=== PATIENT | female | born 1975 | race Two or more races ===

== ENCOUNTER 2017-11-14 21:00 | Emergency (ER) | payer SELFPAY ==
[~2017-11-14] VITALS: Ht 162.6 cm; Wt 72.6 kg
[2017-11-14] MEDS ORDERED: Albuterol/Ipratropium 3ml neb HHN ONE (21:15)
--- NOTE | 2017-11-14 21:18 | Emergency Room Report ---
History of Present Illness General Chief Complaint: Upper Respiratory Illness Source: Patient Present Illness HPI Patient is a 42-year-old female who presented after increased cough and difficulty breathing. Patient gradual onset of symptoms. Patient denies recent productive cough. Patient had been taking Robitussin without any improvement. The cough and been intermittent for approximately one month. She denies any sore throat. She denies prior history of seizures. 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 Allergies: Coded Allergies: No Known Allergies (Unverified , 11/14/17) Patient History Past Medical History: see triage record Last Menstrual Period: november 01 Now: No Reviewed Nursing Documentation: PMH: Agreed; PSxH: Agreed Nursing Documentation-PMH Past Medical History: No Stated History Review of Systems All Other Systems: negative except mentioned in HPI Physical Exam Vital Signs Date Time Temp Pulse Resp B/P (MAP) Pulse Ox O2 Delivery O2 Flow Rate FiO2 11/14/17 21:06 98.7 107 18 154/78 92 Room Air 98.8 Sp02 EP Interpretation: reviewed, normal General Appearance: normal inspection, well appearing, no apparent distress, alert, GCS 15, non-toxic Head: atraumatic ENT: normal ENT inspection, hearing grossly normal, normal voice Neck: normal inspection, full range of motion, supple, no bony tend Respiratory: normal inspection, lungs clear, no respiratory distress, no retraction, wheezing Cardiovascular #1: regular rate, rhythm, no edema Gastrointestinal: normal inspection, normal bowel sounds, non tender, soft, no guarding, no hernia Genitourinary: no CVA tenderness Musculoskeletal: normal inspection, back normal, normal range of motion Neurologic: normal inspection, alert, oriented x3, responsive, stringed instrument repairer III-XII nml as tested, speech normal Psychiatric: normal inspection, judgement/insight normal, mood/affect normal Skin: normal inspection, other - diffuse neurofibromas Medical Decision Making Diagnostic Impression: Primary Impression: Bronchitis Additional Impression: Neurofibromatosis ER Course Patient presented for cough and difficulty breathing.Differential diagnosis included but was not limited to bronchitis, pneumonia, pulmonary embolism, pericarditis, asthma, foreign body. Because of complexity of patient's case imaging studies were ordered. Chest x- ray one view interpreted by me showed no evidence of acute infiltrate or cardiomegaly there is no evident pneumothorax. The patient was given breathing treatment with improvement in her symptoms.The patient is given prescription for albuterol as well as prednisone.The patient is advised to follow up with primary care doctor in 1-2 days. Patient is advised to return if any worsening condition or if any changes in status that are concerning. This report is dictated with [employer] telephone solicitor supervisor software which may occasionally lead to discrepancies related to use of this software. Chest X-Ray Diagnostic Results Chest X-Ray Diagnostic Results : Chest X-Ray Ordered: Yes # of Views/Limited/Complete: 1 View Indication: Chest Pain EP Interpretation: Yes PA Xray: Interpretation reviewed Interpretation: no consolidation, no effusion, no pneumothorax, no acute cardiopulmonary disease Impression: No acute disease Electronically Signed by: Electronically signed by Dr. Jay Swain M.D. Last Vital Signs Date Time Temp Pulse Resp B/P (MAP) Pulse Ox O2 Delivery O2 Flow Rate FiO2 11/14/17 21:06 98.7 107 18 154/78 92 Room Air 98.8 Status: improved Disposition: HOME, SELF-CARE Condition: Stable Scripts Albuterol Sulfate* (ALBUTEROL SULFATE MDI*) 8.5 Gm Hfa.aer.ad 2 PUFF INH Q4H PRN for cough/wheezing, #1 EA 0 Refills Prov: Jay Swain MD 11/14/17 Prednisone* (PREDNISONE*) 20 Mg Tablet 60 MG ORAL DAILY, #15 TAB Prov: Jay Swain MD 11/14/17 Jay Swain MD Nov 14, 2017 21:18
[2017-11-14] MEDS ORDERED: ALBUTEROL SULF8.5 GM INH (22:29)
[2017-11-14] MEDS ORDERED: PREDNISONE20 MG ORAL (22:29)
[2017-11-14 22:45] VITALS: BP 154/78
--- NOTE | 2017-11-15 12:31 | Diagnostic Imaging Report ---
Indication: Dyspnea Comparison: None A single view chest radiograph was obtained. Findings: Cardiomediastinal appearance is within normal limits for age. Pulmonary vascularity is appropriate. The diaphragmatic contour is smooth and costophrenic angles are sharp. No pleural effusions are identified. The bones are unremarkable. Impression: No acute findings
== END 2017-11-14 23:07 | disposition home or self-care (01) ==
LOC: EMR 21:20
DX: J40 Bronchitis, not specified as acute or chronic (principal); Q85.00 Neurofibromatosis, unspecified
CPT/HCPCS: 71045; 94640; 94664; 99284; J7620

== ENCOUNTER 2018-09-01 17:46 | Emergency (ER) | payer MEDICAID ==
[~2018-09-01] VITALS: Ht 162.6 cm; Wt 72.6 kg
[~2018-09-01 17:46] MED LIST: ALBUTEROL SULF8.5 GM INH; PREDNISONE20 MG ORAL
[2018-09-01] MEDS ORDERED: MEDROL DOSEPAK4 MG ORAL (18:00)
[2018-09-01] MEDS ORDERED: Albuterol ud Inhalation HHN ONE ×2 (18:30→19:45)
[2018-09-01 19:01] VITALS: BP 149/97
--- NOTE | 2018-09-01 19:40 | NUR ---
ER Nurse Note: Pt came from home c/o cough for 2 weeks. Pt was on her first breathing treatment. Lung sounds not clear; will assess after breathing treatment. Pt a&ox4, VSS. Will continue to montior.
[2018-09-01] MEDS ORDERED: PROMETHAZINE-C118 M1 ORAL (20:33)
[2018-09-01] MEDS ORDERED: ALBUTEROL SULF8.5 GM INH (20:33)
[2018-09-01] MEDS ORDERED: PREDNISONE20 MG ORAL (20:33)
[2018-09-01] MEDS ORDERED: ROBAXIN-750750 MG PO (20:39)
--- NOTE | 2018-09-01 20:46 | Emergency Room Report ---
History of Present Illness General Chief Complaint: Upper Respiratory Illness Source: Patient Present Illness HPI 43-year-old female presents to the emergency department complaining of dry persistent cough 2 weeks. Patient reports history of neurofibromatosis she denies fevers, chills, recent travel or ill contacts. Patient states she is up- to-date with vaccinations. Patient also is reporting a 3 out of 10 in severity pain to the posterior neck. Patient denies trauma or fall she denies midline neck or back pain. Denies chest pain, palpitations or exertional dyspnea. She denies swelling of the lower extremities. No other modifying or relieving factors at this time Allergies: Coded Allergies: No Known Allergies (Unverified , 09/01/18) Patient History Past Medical History: see triage record Past Surgical History: none Pertinent Family History: none Last Menstrual Period: August 2018 Now: No Immunizations: UTD Reviewed Nursing Documentation: PMH: Agreed; PSxH: Agreed Nursing Documentation-PMH Past Medical History: No History, Except For Review of Systems All Other Systems: negative except mentioned in HPI Physical Exam Vital Signs Date Time Temp Pulse Resp B/P (MAP) Pulse Ox O2 Delivery O2 Flow Rate FiO2 09/01/18 17:56 98.1 80 16 149/97 92 Room Air 09/01/18 18:43 21 Sp02 EP Interpretation: reviewed, normal General Appearance: no apparent distress, alert, GCS 15, non-toxic Head: normocephalic, atraumatic Eyes: bilateral eye normal inspection, bilateral eye PERRL ENT: hearing grossly normal, normal voice Neck: full range of motion Respiratory: chest non-tender, no respiratory distress, no accessory muscle use , speaking full sentences, wheezing Cardiovascular #1: regular rate, rhythm, no edema Rectal: deferred Genitourinary: normal inspection Musculoskeletal: back normal, gait/station normal, normal range of motion, non- tender Neurologic: alert, oriented x3, responsive, motor strength/tone normal, sensory intact, speech normal, grossly normal Psychiatric: judgement/insight normal Skin: normal color, no rash, warm/dry, well hydrated Lymphatic: no adenopathy Medical Decision Making PA Attestation Dr. rodriguez is my supervising Physician whom patient management has been discussed with. Diagnostic Impression: Primary Impression: Bronchitis Additional Impression: Strain of cervical portion of trapezius muscle ER Course 43-year-old female presents to the emergency department complaining of dry persistent cough 2 weeks. Patient reports history of neurofibromatosis she denies fevers, chills, recent travel or ill contacts. Patient states she is up- to-date with vaccinations. Patient also is reporting a 3 out of 10 in severity pain to the posterior neck. Patient denies trauma or fall she denies midline neck or back pain. Denies chest pain, palpitations or exertional dyspnea. She denies swelling of the lower extremities. No other modifying or relieving factors at this time Ddx considered but are not limited to URI, pneumonia, PE, strep pharyngitis, bronchitis Vital signs: Pt. is afebrile, the remaining VS are WNL H&PE are most consistent with Bronchitis with exacerbation, pt. will do cxr to r /o PNA due to significant wheezing. ORDERS: none required at this time, the diagnosis is clinical ED INTERVENTIONS: -Albuterol Nebs x 2 --PT. EDUCATION: Discussed antibiotic resistance with inappropriate prescribing of antibiotics for viral illnesses. Discussed signs and symptoms to indicate viral illness versus bacterial illness. DISCHARGE: At this time pt. is stable for d/c to home. Will provide printed patient care instructions, and any necessary prescriptions. Care plan and follow up instructions have been discussed with the patient prior to discharge. Last Vital Signs Date Time Temp Pulse Resp B/P (MAP) Pulse Ox O2 Delivery O2 Flow Rate FiO2 09/01/18 19:01 98.1 94 20 149/97 94 Room Air 21 Disposition: HOME, SELF-CARE Condition: Stable Scripts Methocarbamol* (ROBAXIN-750*) 750 Mg Tablet 750 MG PO QID for 7 Days, #28 TAB 0 Refills Prov: Maryana Uriarte 09/01/18 Codeine/Promethazine Hcl* (PROMETHAZINE-CODEINE SYRUP*) 118 Ml Syrup 5 ML ORAL Q6H PRN for For Cough, #120 ML 0 Refills Prov: Maryana Uriarte 09/01/18 Albuterol Sulfate* (ALBUTEROL SULFATE MDI*) 8.5 Gm Hfa.aer.ad 2 PUFF INH Q3H, #1 INH 0 Refills Prov: Maryana Uriarte 09/01/18 Prednisone* (PREDNISONE*) 20 Mg Tablet 40 MG ORAL DAILY for 5 Days, #10 TAB Prov: Maryana Uriarte 09/01/18 Referrals: NOT CHOSEN IPA/,REFERRING (PCP) Patient Instructions: Acute Bronchitis Additional Instructions: Take medications as directed. Follow up with a Primary Care Provider in 3-5 days, even if your symptoms have resolved. --Please review list of primary care clinics, if you do not already have a primary care provider Return sooner to ED if new symptoms occur, or current symptoms become worse. - Please note that this Emergency Department Report was dictated using [employer] rig operator technology software, occasionally this can lead to erroneous entry secondary to interpretation by the dictation equipment. Maryana Uriarte Sep 01, 2018 20:46
[2018-09-01 20:50] VITALS: BP 140/92
--- NOTE | 2018-09-01 20:50 | NUR ---
ER Nurse Note: Pt seen, treated, medically cleared for discharge by ERMD. Discharge instructions and prescriptions given with repeat verbalization by pt. Instructed pt to follow up with primary care physican within one week. Pt a&ox4, VSS, no signs of acute distress. ID band removed. Pt left with all belongings.
--- NOTE | 2018-09-02 19:15 | Diagnostic Imaging Report ---
Indication: Cough Comparison: 11/14/2017 A single view chest radiograph was obtained. Findings: Interstitial prominence demonstrated within the lungs although some of this is technical in nature and due to low lung volumes. There is bronchial wall thickening present centrally in the perihilar regions suggestive of bronchitis. Heart size is normal. Bones are unremarkable. IMPRESSION: Bronchitis suspected. No evidence of pneumonia
== END 2018-09-01 20:50 | disposition home or self-care (01) ==
LOC: EMR 18:30
DX: J40 Bronchitis, not specified as acute or chronic (principal); S16.1XXA Strain of muscle, fascia and tendon at neck level, initial encounter; X58.XXXA Exposure to other specified factors, initial encounter; Y92.9 Unspecified place or not applicable
CPT/HCPCS: 71045; 94640; 94664; 99284; J7512

== ENCOUNTER 2019-11-15 12:17 | Emergency (ER) | payer MEDICAID ==
[~2019-11-15] VITALS: Ht 165.1 cm; Wt 74.8 kg
[~2019-11-15 12:17] MED LIST changes: +MEDROL DOSEPAK4 MG ORAL; +PROMETHAZINE-C118 M1 ORAL; +ROBAXIN-750750 MG PO
[2019-11-15 12:24] VITALS: BP 140/80
--- NOTE | 2019-11-15 12:24 | NUR ---
ED Nurse Note: pt walked in to ed for C/O SOB x 1 week. pt reports having hx of asthma. sp02 is 96 % in Room air at this time.
[2019-11-15] MEDS: Ipratropium 0.02% Inh Soln 2.5ml UD HHN SCH (12:58)
[2019-11-15] MEDS: Albuterol ud Inhalation HHN SCH (12:58)
--- NOTE | 2019-11-15 13:02 | NUR ---
ED Nurse Note: pt receiving reathing tx at bedside.
--- NOTE | 2019-11-15 13:09 | NUR ---
ED Nurse Note: Repory given to Ilda Keys RN. Endorsed plan of care.
--- NOTE | 2019-11-15 13:49 | Diagnostic Imaging Report ---
EXAM: XR Chest, 1 View CLINICAL HISTORY: COUGH TECHNIQUE: Frontal view of the chest. COMPARISON: Chest x-ray dated 09/01/18 FINDINGS: Lungs: Unremarkable. The lungs appear clear. No focal consolidation. Pleural space: Unremarkable. The costophrenic angles are sharp. No visible pneumothorax. Heart: Unremarkable. No cardiomegaly. Mediastinum: Unremarkable. Bones/joints: Unremarkable. Tubes, lines and devices: Telemetry leads overlie the thorax. IMPRESSION: No acute findings in the chest.
[2019-11-15] MEDS ORDERED: PREDNISONE20 MG ORAL (13:54)
[2019-11-15] MEDS ORDERED: ALBUTEROL SULF8.5 G1 INH (13:54)
--- NOTE | 2019-11-15 14:09 | NUR ---
ER DISCHARGE NOTE: Patient is cleared to be discharged per ERMD, pt is aox4, on room air, with stable vital signs. pt was given dc and prescription instructions, pt was able to verbalize understanding, pt id band removed. pt is able to ambulate with steady gait. pt took all belongings. Prescriptions given to patient.
[2019-11-15 14:10] VITALS: BP 132/76
--- NOTE | 2019-11-17 06:58 | Emergency Room Report ---
History of Present Illness General Chief Complaint: Asthma Source: Patient Present Illness HPI 44-year-old female presents with shortness of breath, wheezing x1 week. History of asthma. Denies cough. Denies fevers or chills. Denies chest pain. States she has been home and self isolating. No other aggravating relieving factors. Denies any other associated symptoms Allergies: Coded Allergies: No Known Allergies (Unverified , 09/01/18) COVID-19 Screening Contact w/high risk pt: No Recent Travel to affected area: No Experienced COVID-19 symptoms?: Yes COVID-19 symptoms experienced: Shortness of Breath COVID-19 Testing performed WASTE OIL PUMPER: No Patient History Past Medical History: none Past Surgical History: none Pertinent Family History: none Social History: Denies: smoking, alcohol use, drug use Last Menstrual Period: na Now: No Immunizations: UTD Reviewed Nursing Documentation: PMH: Agreed; PSxH: Agreed Nursing Documentation-PMH Past Medical History: No History, Except For Review of Systems All Other Systems: negative except mentioned in HPI Physical Exam Vital Signs Date Time Temp Pulse Resp B/P (MAP) Pulse Ox O2 Delivery O2 Flow Rate FiO2 11/15/19 12:20 98.2 98 17 137/89 (105) 90 Room Air 11/15/19 13:58 21 Sp02 EP Interpretation: reviewed, normal General Appearance: no apparent distress, alert, GCS 15, non-toxic Head: normocephalic, atraumatic Eyes: bilateral eye normal inspection, bilateral eye PERRL ENT: hearing grossly normal, normal pharynx, no angioedema, normal voice Neck: full range of motion, supple/symm/no masses Respiratory: chest non-tender, speaking full sentences, wheezing Cardiovascular #1: regular rate, rhythm, no edema Cardiovascular #2: 2+ carotid (R), 2+ carotid (L), 2+ radial (R), 2+ radial (L) , 2+ dorsalis pedis (R), 2+ dorsalis pedis (L) Gastrointestinal: normal bowel sounds, non tender, soft, non-distended, no guarding, no rebound Rectal: deferred Genitourinary: normal inspection, no CVA tenderness Musculoskeletal: back normal, normal range of motion, gait/station normal, non- tender Neurologic: alert, motor strength/tone normal, oriented x3, sensory intact, responsive, speech normal Psychiatric: judgement/insight normal, memory normal, mood/affect normal, no suicidal/homicidal ideation Reflexes: 3+ bicep (R), 3+ bicep (L), 3+ tricep (R), 3+ tricep (L), 3+ knee (R) , 3+ knee (L) Skin: normal color Lymphatic: no adenopathy Medical Decision Making Diagnostic Impression: Primary Impression: Asthma attack Qualified Codes: J45.21 - Mild intermittent asthma with (acute) exacerbation ER Course Hospital Course 44-year-old female presents to ED complaining of wheezing. h/o asthma Differential diagnoses include: URI, bronchitis, asthma/COPD, pneumonia Clinical course Patient placed on stretcher. After initial history, physical exam reveals a female in no acute distress. Bilateral TM unremarkable. No pharyngeal erythema. No tonsillar exudates. No lymphadenopathy. Mild wheezing noted on exam, no signs of respiratory distress or retractions. Patient given Prednisone and albuterol/atrovent treatment in ED with symptoms improved. I discussed findings with patient. Safe for discharge for close outpatient follow-up. Diagnosis - asthma attack Stable and discharged home with albterul, prednisone. Instructed to followup with PMD. Return to ED if symptoms recur or worsen Chest X-Ray Diagnostic Results Chest X-Ray Diagnostic Results : Chest X-Ray Ordered: Yes # of Views/Limited/Complete: 1 View Indication: Shortness of Breath EP Interpretation: Yes Interpretation: no consolidation, no effusion, no pneumothorax, no acute cardiopulmonary disease Impression: No acute disease Electronically Signed by: Electronically signed by Aftab Sanchez MD Last Vital Signs Date Time Temp Pulse Resp B/P (MAP) Pulse Ox O2 Delivery O2 Flow Rate FiO2 11/15/19 14:10 98.2 82 18 132/76 99 Room Air 11/15/19 13:58 21 Status: improved Disposition: HOME, SELF-CARE Condition: Stable Scripts Albuterol Sulfate* (Albuterol Sulfate Hfa*) 8.5 Gm Hfa.aer.ad 2 PUFF INH Q4H, #1 INH Prov: Aftab Sanchez MD 11/15/19 Prednisone* (PREDNISONE*) 20 Mg Tablet 40 MG ORAL DAILY for 5 Days, #10 TAB Prov: Aftab Sanchez MD 6/7/20 Referrals: Ludmila Bonner [facility] Patient Instructions: Asthma, Adult Aftab Sanchez MD Nov 17, 2019 06:57
== END 2019-11-15 14:11 | disposition home or self-care (01) ==
LOC: EMR 12:41
DX: J45.21 Mild intermittent asthma with (acute) exacerbation (principal)
CPT/HCPCS: 71045; J7512; Z7502; 99284